=== PATIENT | male | born 1960 | race Caucasian/White ===

== ENCOUNTER 2017-04-11 21:55 | Inpatient (IN) | payer SELFPAY ==
[~2017-04-11] VITALS: Ht 188 cm; Wt 123.0 kg
[2017-04-11] MEDS ORDERED: ONDANSETRON HCL 4 MG/2 ML VIAL ONE (22:31)
[2017-04-11] MEDS ORDERED: MORPHINE SULFATE 4 MG/1ML SYG ONE (22:31)
[2017-04-11 22:37] LABS: APPEARANCE,URINE Cloudy (CLEAR); BILIRUBIN,URINE Negative (NEGATIVE); COLOR,URINE Dark Yellow (YELLOW); GLUCOSE, URINE (UA) Negative (NEGATIVE); KETONES,URINE Trace mg/dL (NEGATIVE); LEUKOCYTE ESTERASE ,URINE Trace (NEGATIVE); NITRATE,URINE Negative (NEGATIVE); OCCULT BLOOD,URINE Trace (NEGATIVE); PROTEIN,URINE Trace (NEGATIVE)
[2017-04-11 22:55] LABS: BASOPHILS % (AUTO) 0.2 % (0.0-5.0); EOSINOPHILS % (AUTO) 0.2 % (0.0-8.0); HEMATOCRIT 40.3 % (42-54); LYMPHOCYTES % (AUTO) 6.9 % (21.0-51.0); MEAN CORPUSCULAR HEMOGLOBIN 31.6 pg (27.0-33.0); MEAN CORPUSCULAR HGB CONC 34.1 g/dL (32.0-36.0); MEAN CORPUSCULAR VOLUME 92.9 fL (79-99); MONOCYTES % (AUTO) 0.5 % (3.0-13.0); NEUTROPHILS % (AUTO) 92.2 % (40.0-77.0); PLATELET COUNT (AUTO) 221 K/uL (130-400); RED BLOOD CELL COUNT(AUTO) 4.34 MIL/uL (4.50-6.20); RED CELL DISTRIBUTION WIDTH 12.9 % (11.0-15.5); WHITE BLOOD COUNT (AUTO) 5.9 K/uL (4.8-10.8)
[2017-04-11 22:59] LABS: BACTERIA,URINE Rare /HPF (None Seen); MUCUS,URINE Moderate LPF (None Seen); SQUAMOUS EPITHELIAL CELL,UR Moderate /LPF (0-2)
[2017-04-11 23:21] LABS: CREATININE 1.2 mg/dL (0.5-1.5); POTASSIUM 3.1 mmol/L (3.5-5.1)
[2017-04-11 23:25] LABS: ALBUMIN 3.9 g/dL (3.5-5.0); BILIRUBIN,TOTAL 1.2 mg/dL (0.2-1.0); TOTAL PROTEIN, SERUM 7.6 g/dL (6.0-8.3)
[2017-04-12] MEDS ORDERED: ACETAMINOPHEN 325 MG TAB ONE (02:10)
[2017-04-12 02:20] VITALS: BP 142/73
[2017-04-12] MEDS ORDERED: IBUP-2353 PO (03:08)
[2017-04-12] MEDS ORDERED: TYL3 PO (03:08)
[2017-04-12] MEDS ORDERED: MVIT PO (03:08)
[2017-04-12] MEDS ORDERED: MORPHINE SULFATE 2 MG/ML 1ML SYG IM PRN (03:45)
[2017-04-12] MEDS ORDERED: ACETAMINOPHEN 325 MG TAB PO PRN (03:45)
[2017-04-12] MEDS: MORPHINE SULFATE 2 MG/ML 1ML SYG IVP PRN ×4 (05:32→21:38)
[2017-04-12] MEDS ORDERED: POTASSIUM CHLORIDE 10% ELIXIR 20 MEQ/15 ML UDCUP PO PRN (07:00)
[2017-04-12] MEDS ORDERED: POTASSIUM CHLORIDE 20MEQ/100ML 100 ML IV PRN (07:00)
[2017-04-12] MEDS ORDERED: LIDOCAINE HCL-MPF 1% 2ML VIAL IVP PRN (07:00)
[2017-04-12 07:52] VITALS: BP 111/58
[2017-04-12] MEDS ORDERED: POTASSIUM CHLORIDE 20 MEQ ERTAB PO ONE (08:46)
[2017-04-12] MEDS: SODIUM CHLORIDE 0.9% 1000ML 1,000 ML IV SCH ×2 (10:07→20:52)
[2017-04-12] MEDS: POTASSIUM CHLORIDE 20 MEQ ERTAB PO PRN ×2 (10:08→13:08)
[2017-04-12 11:05] LABS: MEAN CORPUSCULAR HEMOGLOBIN 32.2 pg (27.0-33.0); MEAN CORPUSCULAR HGB CONC 34.8 g/dL (32.0-36.0); MEAN CORPUSCULAR VOLUME 92.6 fL (79-99); PLATELET COUNT (AUTO) 220 K/uL (130-400); RED BLOOD CELL COUNT(AUTO) 4.11 MIL/uL (4.50-6.20); RED CELL DISTRIBUTION WIDTH 13.2 % (11.0-15.5); WHITE BLOOD COUNT (AUTO) 21.7 K/uL (4.8-10.8)
[2017-04-12 11:13] LABS: HEMOGLOBIN A1C 6.4 % (4.0-6.0)
[2017-04-12 11:20] LABS: ALANINE AMINOTRANSFERASE 398 U/L (12-78); ALBUMIN 3.3 g/dL (3.5-5.0); AMYLASE 26 U/L (25-115); ASPARTATE AMINOTRANSFERASE 310 U/L (10-37); BILIRUBIN,DIRECT 2.3 mg/dL (0.0-0.3); BILIRUBIN,TOTAL 2.8 mg/dL (0.2-1.0); CARBON DIOXIDE 30 mmol/L (21-32); CHLORIDE 100 mmol/L (101-111); CHOLESTEROL 131 mg/dL (<200); CREATININE 1.2 mg/dL (0.5-1.5); GLOMERULAR FILTR. RATE CALC 67 mL/min (>60); GLUCOSE,RANDOM 164 mg/dL (70-105); HDL CHOLESTEROL 47 mg/dL (29-71); LDL DIRECT 69 mg/dL (0-99); POTASSIUM 3.7 mmol/L (3.5-5.1); SODIUM SERUM 138 mmol/L (136-145); TOTAL PROTEIN, SERUM 6.8 g/dL (6.0-8.3); TRIGLYCERIDES 162 mg/dL (30-200); UREA NITROGEN, BLOOD 19 mg/dL (7-18)
[2017-04-12 11:22] LABS: LIPASE < 50 U/L (114-286)
[2017-04-12 11:25] VITALS: BP 116/62
[2017-04-12 11:29] LABS: BAND NEUTROPHILS % (MANUAL) 27 % (0-2); LYMPHOCYTES % (MANUAL) 2 % (22-44); MAN.DIFF COMMENT-IMPRESSION MANUAL DIFFERENTIAL; MONOCYTES % (MANUAL) 7 % (2-9); PLATELET MORPHOLOGY COMMENT ADEQUATE; SEGMENTED NEUTROPHILS % 64 % (40-70)
[2017-04-12] MEDS: ZOSYN 3.375GM+NS 50ML 50 ML IV SCH ×2 (12:57→17:32)
[2017-04-12] MEDS: INSULIN HUMULIN R 100 UNIT/ML 3ML SQ SCH ×2 (16:30→21:00)
[2017-04-12 16:34] VITALS: BP 120/87
[2017-04-12] MEDS ORDERED: HYDRALAZINE HCL 20 MG/ML VIAL IV PRN (18:15)
[2017-04-12] MEDS ORDERED: ONDANSETRON HCL 4 MG/2 ML VIAL IVP PRN (18:15)
[2017-04-12 20:00] VITALS: BP 122/69
[2017-04-12] MEDS: PANTOPRAZOLE SODIUM 40 MG TABLET.DR PO SCH (20:23)
[2017-04-13] VITALS (7 sets, daily range): BP systolic 107–132; BP diastolic 61–81
[2017-04-13] MEDS: ZOSYN 3.375GM+NS 50ML 50 ML IV SCH ×3 (03:22→19:18)
[2017-04-13] MEDS: MORPHINE SULFATE 2 MG/ML 1ML SYG IVP PRN ×4 (03:34→21:47)
[2017-04-13 05:08] LABS: BASOPHILS % (AUTO) 0.1 % (0.0-5.0); EOSINOPHILS % (AUTO) 0.6 % (0.0-8.0); HEMATOCRIT 36.3 % (42-54); LYMPHOCYTES % (AUTO) 4.1 % (21.0-51.0); MEAN CORPUSCULAR HEMOGLOBIN 31.7 pg (27.0-33.0); MEAN CORPUSCULAR HGB CONC 33.7 g/dL (32.0-36.0); MONOCYTES % (AUTO) 6.8 % (3.0-13.0); NEUTROPHILS % (AUTO) 88.4 % (40.0-77.0); PLATELET COUNT (AUTO) 183 K/uL (130-400); RED BLOOD CELL COUNT(AUTO) 3.87 MIL/uL (4.50-6.20); RED CELL DISTRIBUTION WIDTH 13.6 % (11.0-15.5); WHITE BLOOD COUNT (AUTO) 12.7 K/uL (4.8-10.8)
[2017-04-13 05:28] LABS: HEMOGLOBIN A1C 6.4 % (4.0-6.0)
[2017-04-13 05:50] LABS: MAGNESIUM 1.8 mg/dL (1.80-2.40); POTASSIUM 3.6 mmol/L (3.5-5.1)
[2017-04-13] MEDS: SODIUM CHLORIDE 0.9% 1000ML 1,000 ML IV SCH ×2 (05:59→16:30)
[2017-04-13] MEDS: INSULIN HUMULIN R 100 UNIT/ML 3ML SQ SCH ×4 (07:30→21:00)
[2017-04-13] MEDS ORDERED: GADOBENATE DIMEGLUMINE 20 ML IV ONE (07:45)
[2017-04-13] MEDS: PANTOPRAZOLE SODIUM 40 MG TABLET.DR PO SCH (08:57)
[2017-04-14] MEDS: ZOSYN 3.375GM+NS 50ML 50 ML IV SCH ×3 (03:42→18:35)
[2017-04-14] MEDS: MORPHINE SULFATE 2 MG/ML 1ML SYG IVP PRN ×4 (03:50→21:05)
[2017-04-14 04:57] VITALS: BP 120/80
[2017-04-14 05:57] LABS: BASOPHILS % (AUTO) 0.2 % (0.0-5.0); EOSINOPHILS % (AUTO) 1.9 % (0.0-8.0); HEMATOCRIT 34.5 % (42-54); MEAN CORPUSCULAR HEMOGLOBIN 32.4 pg (27.0-33.0); MEAN CORPUSCULAR HGB CONC 34.5 g/dL (32.0-36.0); MEAN CORPUSCULAR VOLUME 94.1 fL (79-99); MONOCYTES % (AUTO) 7.8 % (3.0-13.0); NEUTROPHILS % (AUTO) 80.1 % (40.0-77.0); PLATELET COUNT (AUTO) 153 K/uL (130-400); RED BLOOD CELL COUNT(AUTO) 3.67 MIL/uL (4.50-6.20); RED CELL DISTRIBUTION WIDTH 13.4 % (11.0-15.5); WHITE BLOOD COUNT (AUTO) 6.9 K/uL (4.8-10.8)
[2017-04-14 06:08] LABS: POTASSIUM 3.9 mmol/L (3.5-5.1)
[2017-04-14] MEDS: INSULIN HUMULIN R 100 UNIT/ML 3ML SQ SCH ×4 (06:34→21:00)
[2017-04-14] MEDS: PANTOPRAZOLE SODIUM 40 MG TABLET.DR PO SCH (08:27)
[2017-04-14 08:57] VITALS: BP 117/80
[2017-04-14 11:53] VITALS: BP 141/88
[2017-04-14] MEDS: SODIUM CHLORIDE 0.9% 1000ML 1,000 ML IV SCH ×3 (14:40→21:05)
[2017-04-14 15:59] VITALS: BP 115/78
[2017-04-14 20:48] VITALS: BP 126/82
[2017-04-15] VITALS (21 sets, daily range): BP systolic 115–155; BP diastolic 63–90
[2017-04-15] MEDS: ZOSYN 3.375GM+NS 50ML 50 ML IV SCH ×3 (02:58→22:38)
[2017-04-15] MEDS: INSULIN HUMULIN R 100 UNIT/ML 3ML SQ SCH ×3 (05:32→16:30)
[2017-04-15 05:41] LABS: BASOPHILS % (AUTO) 0.2 % (0.0-5.0); EOSINOPHILS % (AUTO) 2.2 % (0.0-8.0); HEMATOCRIT 36.3 % (42-54); LYMPHOCYTES % (AUTO) 16.5 % (21.0-51.0); MEAN CORPUSCULAR HEMOGLOBIN 32.2 pg (27.0-33.0); MEAN CORPUSCULAR HGB CONC 34.2 g/dL (32.0-36.0); MEAN CORPUSCULAR VOLUME 94.3 fL (79-99); MONOCYTES % (AUTO) 9.8 % (3.0-13.0); NEUTROPHILS % (AUTO) 71.3 % (40.0-77.0); PLATELET COUNT (AUTO) 190 K/uL (130-400); RED BLOOD CELL COUNT(AUTO) 3.85 MIL/uL (4.50-6.20); RED CELL DISTRIBUTION WIDTH 13.3 % (11.0-15.5); WHITE BLOOD COUNT (AUTO) 6.9 K/uL (4.8-10.8)
[2017-04-15] MEDS: SODIUM CHLORIDE 0.9% 1000ML 1,000 ML IV SCH ×2 (05:48→15:31)
[2017-04-15 05:52] LABS: ALBUMIN 3.1 g/dL (3.5-5.0); BILIRUBIN,DIRECT 0.5 mg/dL (0.0-0.3); BILIRUBIN,TOTAL 1.1 mg/dL (0.2-1.0); POTASSIUM 3.6 mmol/L (3.5-5.1)
[2017-04-15] MEDS: MORPHINE SULFATE 2 MG/ML 1ML SYG IVP PRN (06:20)
[2017-04-15] MEDS ORDERED: BUPIVACAINE/PF 0.5% 30ML VIAL ONE (12:25)
[2017-04-15] MEDS ORDERED: LIDOCAINE HCL 2% JELLY 5 ML ONE (12:56)
[2017-04-15] MEDS ORDERED: NEOSTIGMINE 5MG/5ML SYR IV ONE (12:56)
[2017-04-15] MEDS ORDERED: DEXAMETHASONE SOD PHOSPHATE 10MG/ML 1ML VIAL ONE (12:56)
[2017-04-15] MEDS ORDERED: MIDAZOLAM HCL 1 MG/ML 2ML VIAL ONE (12:56)
[2017-04-15] MEDS ORDERED: ROCURONIUM BROMIDE 10MG/1ML 5ML VL ONE (12:56)
[2017-04-15] MEDS ORDERED: NEOSTIGMINE METHYLSULFATE 1MG/ML IV ONE (12:56)
[2017-04-15] MEDS ORDERED: PROPOFOL 10 MG/ML 20ML VIAL IV ONE (12:56)
[2017-04-15] MEDS ORDERED: LIDOCAINE HCL MPF 1% 5ML VIAL ONE (12:56)
[2017-04-15] MEDS ORDERED: PHENYLEPHRINE HCL 10 MG/ML 1ML VIAL IV ONE (12:56)
[2017-04-15] MEDS ORDERED: GLYCOPYRROLATE 0.2 MG/ML 5 ML VIAL ONE (12:56)
[2017-04-15] MEDS ORDERED: ONDANSETRON HCL 4 MG/2 ML VIAL ONE (12:56)
[2017-04-15] MEDS ORDERED: SODIUM CHLORIDE 0.9% 10 ML VIAL ONE (12:56)
[2017-04-15] MEDS ORDERED: FENTANYL CITRATE PF 50 MCG/1 ML 5ML AMP IV ONE (12:57)
[2017-04-15] MEDS: LACTATED RINGERS 1000ML 1,000 ML IV SCH (13:50)
[2017-04-15] MEDS ORDERED: MORPHINE SULFATE 2 MG/ML 1ML SYG IV PRN (14:00)
[2017-04-15] MEDS ORDERED: MEPERIDINE-PF 25 MG/ML SYG ONE ×2 (14:09→14:24)
[2017-04-15] MEDS: FLU VACC QS2017-18 36MOS UP/PF 60 MCG/0.5 ML ML IM SCH ×2 (15:00→15:32)
[2017-04-15] MEDS: MORPHINE SULFATE 4 MG/1ML SYG IV PRN ×2 (15:30→19:54)
[2017-04-15] MEDS: PANTOPRAZOLE SODIUM 40 MG TABLET.DR PO SCH (15:46)
[2017-04-15] MEDS: POTASSIUM CHLORIDE 20 MEQ ERTAB PO PRN ×2 (15:46→18:27)
[2017-04-16] VITALS: BP 115/73
[2017-04-16] MEDS: MORPHINE SULFATE 4 MG/1ML SYG IV PRN ×3 (00:48→08:55)
[2017-04-16] MEDS: INSULIN HUMULIN R 100 UNIT/ML 3ML SQ SCH ×3 (01:02→11:30)
[2017-04-16] MEDS: LACTATED RINGERS 1000ML 1,000 ML IV SCH (02:42)
[2017-04-16 04:00] VITALS: BP 121/77
[2017-04-16] MEDS: ZOSYN 3.375GM+NS 50ML 50 ML IV SCH (04:35)
[2017-04-16 05:09] LABS: HEMATOCRIT 35.6 % (42-54); MEAN CORPUSCULAR HEMOGLOBIN 32.8 pg (27.0-33.0); MEAN CORPUSCULAR VOLUME 93.8 fL (79-99); PLATELET COUNT (AUTO) 235 K/uL (130-400); RED BLOOD CELL COUNT(AUTO) 3.79 MIL/uL (4.50-6.20); RED CELL DISTRIBUTION WIDTH 13.4 % (11.0-15.5); WHITE BLOOD COUNT (AUTO) 10.4 K/uL (4.8-10.8)
[2017-04-16 05:21] LABS: ALBUMIN 3.1 g/dL (3.5-5.0); TOTAL PROTEIN, SERUM 7.1 g/dL (6.0-8.3)
[2017-04-16 05:31] LABS: LYMPHOCYTES % (MANUAL) 13 % (22-44); MAN.DIFF COMMENT-IMPRESSION MANUAL DIFFERENTIAL; MONOCYTES % (MANUAL) 10 % (2-9); PLATELET MORPHOLOGY COMMENT ADEQUATE; SEGMENTED NEUTROPHILS % 77 % (40-70)
[2017-04-16 07:30] VITALS: BP 126/74
[2017-04-16] MEDS: PANTOPRAZOLE SODIUM 40 MG TABLET.DR PO SCH (08:55)
[2017-04-16] MEDS: FLU VACC QS2017-18 36MOS UP/PF 60 MCG/0.5 ML ML IM SCH (09:03)
[2017-04-16 11:00] VITALS: BP 109/71
[2017-04-16] MEDS ORDERED: CEFU500T67 PO (12:15)
== END 2017-04-16 14:45 | disposition home or self-care (01) | DRG 854 ==
LOC: EDH 21:55 → OBSVTOIN 21:56 → EDHIP 21:56 → 4BH 04-12 02:22
PROVIDERS: ADMIT Family Medicine; ATTEND Family Medicine
PROC: 3E0234Z Introduction of Serum, Toxoid and Vaccine into Muscle, Percutaneous Approach (ICD-10-PCS; 2017-04-15)
PROC: 0FT44ZZ Resection of Gallbladder, Percutaneous Endoscopic Approach (ICD-10-PCS; principal; 2017-04-15 13:00)
DX: A41.9 Sepsis, unspecified organism (principal); K80.00 Calculus of gallbladder with acute cholecystitis without obstruction; G30.9 Alzheimer's disease, unspecified; E66.01 Morbid (severe) obesity due to excess calories; I10 Essential (primary) hypertension; B96.1 Klebsiella pneumoniae [K. pneumoniae] as the cause of diseases classified elsewhere; B96.89 Other specified bacterial agents as the cause of diseases classified elsewhere; R73.9 Hyperglycemia, unspecified; D64.9 Anemia, unspecified; K82.8 Other specified diseases of gallbladder; Z68.34 Body mass index [BMI] 34.0-34.9, adult; Z23 Encounter for immunization; Z82.5 Family history of asthma and other chronic lower respiratory diseases; Z82.3 Family history of stroke
CPT/HCPCS: 36415; 74183; 76705; 80048; 80053; 80061; 80076; 81001; 82150; 82948; 83036; 83690; 83735; 85025; 87040; 87088; 87186; 88304; A9577; J1100; J1815; J2175; J2250; J2270; J2370; J2405; J2543; J2704; J2710; J3010; J3480; J3490; J7030; J7120; Q2038